=== PATIENT | male | born 1995 ===

== ENCOUNTER 2019-01-22 17:34 | Emergency (ER) | payer OTHER ==
[2019-01-22 17:43] VITALS: BP 111/64
--- NOTE | 2019-01-22 17:58 | UC ---
Head Injury HPI - HPI Summary HPI Summary: 23 yo male was intoxicated 2 days ago ( DAY) and fell injuring his head No LOC hit left side of face (orbital rim) on pavement N/V yesteday just nausea today photophobia trouble focusing has finals coming up - History Of Current Complaint Chief Complaint: UCHeadInjury Stated Complaint: HEAD INJURY Time Seen by Provider: 01/22/19 17:38 Hx Obtained From: Patient Onset/Duration: Sudden Onset, Lasting Days Severity Currently: Moderate Severity Initially: Moderate Pain Intensity: 6 Pain Scale Used: 0-10 Numeric Character: Dull, Throbbing Aggravating Factor(s): Nothing Alleviating Factor(s): Other - aleve Associated Signs And Symptoms: Positive: Nausea, Vomiting. Negative: LOC (Time In Secs./Mins/Hrs), LOC Duration Unknown, Confusion, Memory Loss, Seizure, Epistaxis, Dental Malocclusion, Neck Pain Head: 1 - tender/echhymosis/no orbital rim step off 2 - SMITH here - Allergies/Home Medications Allergies/Adverse Reactions: Allergies Allergy/AdvReac Type Severity Reaction Status Date / Time No Known Allergies Allergy Verified 01/22/19 17:43 Home Medications: Home Medications Budesonide CAP(NF) 1 mg PO 01/22/19 [History] Sertraline* [Zoloft*] 100 mg PO DAILY 01/22/19 [History Confirmed 01/22/19] PMH/Surg Hx/FS Hx/Imm Hx Previously Healthy: Yes - Surgical History Surgical History: Yes Surgery Procedure, Year, and Place: plate and 3 screws to rt wrist. - Family History Known Family History: Negative: Cardiac Disease, Hypertension, Diabetes - Social History Alcohol Use: Weekly Substance Use Type: Marijuana Substance Use Comment - Amount & Last Used: daily Smoking Status (MU): Never Smoked Tobacco Review of Systems All Other Systems Reviewed And Are Negative: Yes Constitutional: Positive: Negative Skin: Positive: Bruising Eyes: Positive: Photophobia ENT: Positive: Negative Respiratory: Positive: Negative Cardiovascular: Positive: Negative Gastrointestinal: Positive: Negative Genitourinary: Positive: Negative Motor: Positive: Negative Neurovascular: Positive: Negative Musculoskeletal: Positive: Negative Neurological: Positive: Headache Physical Exam Triage Information Reviewed: Yes Appearance: Well-Appearing, No Pain Distress, Well-Nourished Vital Signs: Initial Vital Signs Temp 99.0 F 01/22/19 17:39 Pulse 64 01/22/19 17:39 Resp 18 01/22/19 17:39 BP 111/64 01/22/19 17:39 Pulse Ox 100 01/22/19 17:39 Vital Signs Reviewed: Yes Eyes: Positive: Conjunctiva Clear, Other: - eomi/perrl ENT: Positive: Hearing grossly normal, TMs normal - no hemotympanum. Negative: Pharyngeal erythema, Nasal congestion, Nasal drainage Dental Exam: Normal Neck: Positive: Supple, Nontender, No Lymphadenopathy Respiratory: Positive: Lungs clear, Normal breath sounds, No respiratory distress, No accessory muscle use Cardiovascular: Positive: RRR, No Murmur Musculoskeletal: Positive: ROM Intact, No Edema Neurological: Positive: Alert, Other: - CGS 15/15, cn 2-12 intact, strength 5/5 , dtrs symetrical ,memory intact Diagnostics - Radiology No standard instances Radiology Interpretation Completed By: Radiologist Summary of Radiographic Findings: normal CT of brain Head Injury Course/Dx - Differential Dx/Diagnosis Provider Diagnosis: Concussion without loss of consciousness Discharge - Sign-Out/Discharge Documenting (check all that apply): Patient Departure All imaging exams completed and their final reports reviewed: Yes - Discharge Plan Condition: Stable Disposition: HOME Patient Education Materials: Concussion (ED) Forms: *Gen. Provider Communication Referrals: No Primary Care Phys,NOPCP [Primary Care Provider] - Additional Instructions: rest aleve fluids avoid alcohol recheck for new or worsening symptoms recheck in one week if not completely better see your MD when you return home for recheck - Billing Disposition and Condition Condition: STABLE Disposition: Home
== END 2019-01-22 18:20 | disposition home or self-care (01) ==
LOC: UCEAST 17:34
DX: S06.0X0A Concussion without loss of consciousness, initial encounter (principal); S00.83XA Contusion of other part of head, initial encounter; R11.2 Nausea with vomiting, unspecified; X58.XXXA Exposure to other specified factors, initial encounter; Y92.480 Sidewalk as the place of occurrence of the external cause
CPT/HCPCS: 70450; 99201; G0463